=== PATIENT | female | born 1985 | race Caucasian/White ===

== ENCOUNTER 2024-06-06 23:27 | Emergency (ER) | payer BC ==
[2024-06-07 02:01] LABS: APPEARANCE,URINE CLEAR; BILIRUBIN,URINE NEGATIVE (NEGATIVE); COLOR,URINE YELLOW; GLUCOSE,URINE NEGATIVE (NEGATIVE); KETONES,URINE NEGATIVE (NEGATIVE); LEUKOCYTE ESTERASE,URINE NEGATIVE (NEGATIVE); NITRITE,URINE NEGATIVE (NEGATIVE); OCCULT BLOOD,URINE NEGATIVE (NEGATIVE); PH,URINE 6.5 (5.0-8.0); PROTEIN,URINE NEGATIVE (NEGATIVE); UROBILINOGEN,URINE 0.2 EU/dL (<2.0)
[2024-06-07 02:11] LABS: BACTERIA,URINE RARE (NEGATIVE); EPITHELIAL CELLS,URINE RARE (NONE-FEW); MUCUS,URINE LIGHT (NONE-MOD); RBC,URINE NONE SEEN (0-2/HPF); WBC,URINE NONE SEEN (0-5/HPF)
[2024-06-07] MEDS: Penicillin G Benzathine 1,200,000 Units/2 ML Syringe IM ONE (02:52)
[2024-06-07 03:33] LABS: C. TRACHOMATIS BY PCR NOT DETECTED; N. GONORRHOEAE BY PCR NOT DETECTED
[2024-06-07 03:46] LABS: HEPATITIS C AB# 0.13 INDEX (<0.8); HIV12 AG/AB 4TH GEN W/REFLEX 0.3 INDEX (<1.0)
== END 2024-06-07 04:18 | disposition left against medical advice (07) ==
LOC: MW.ED 23:27
DX: R10.30 Lower abdominal pain, unspecified (principal)
CPT/HCPCS: 36415; 81001; 81025; 86592; 86706; 86803; 87340; 87389; 87491; 87591; 96372; 99284; J0561; 99282